=== PATIENT | male | born 1950 | race African-American/Black ===

== ENCOUNTER 2020-07-29 12:04 | Emergency (ER) | payer OTHER ==
[2020-07-29] MEDS ORDERED: LIDOCAINE 1% INJ-PF (10 MG/ML) 30 ML SDV INJ ONE (12:24)
[2020-07-29] MEDS ORDERED: DIPH/PERTUSS(ACELL)/TETANUS VAC/PF 0.5 ML SYR (>=10YO) IM ONE (12:25)
--- NOTE | 2020-07-29 12:30 | ER Document Report ---
HPI - HPI Patient complains to provider of: right finger laceratio Time Seen by Provider: 07/29/20 12:16 Context: 69-year-old male with no previous medical problems presents emergency room with a laceration to his right middle finger. 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 Bleeding is persistent Associated Symptoms: None Exacerbated by: Movement Relieved by: Remaining still Similar symptoms previously: No Recently seen / treated by doctor: No - ROS Systems Reviewed and Negative: Yes All other systems reviewed and negative - NEURO Neurology: DENIES: Weakness - MUSCULOSKELETAL Musculoskeletal: REPORTS: Extremity pain - DERM Skin Color: Erythema Skin Problems: Laceration Past Medical History - General Information source: Patient - Social History Smoking Status: Never Smoker Frequency of alcohol use: Occasional Drug Abuse: None Family History: Reviewed & Not Pertinent - Medical History Medical History: Negative Vertical Provider Document - CONSTITUTIONAL Agree With Documented VS: Yes Exam Limitations: No Limitations General Appearance: Mild Distress - INFECTION CONTROL TRAVEL OUTSIDE OF THE [place] IN LAST 30 DAYS: No - HEENT HEENT: Atraumatic, Normocephalic - NECK Neck: Normal Inspection, Supple - RESPIRATORY Respiratory: Breath Sounds Normal, No Respiratory Distress - CARDIOVASCULAR Cardiovascular: Regular Rate, Regular Rhythm, No Murmur - MUSCULOSKELETAL/EXTREMETIES Musculoskeletal/Extremeties: FROM, Tender - Tenderness on palpation to the mid palmar aspect of the right third digit. Full range of motion. No obvious deformity noted. - NEURO Level of Consciousness: Awake, Alert, Appropriate Motor/Sensory: No Motor Deficit, No Sensory Deficit Notes: Positive left radial pulse. Capillary refill less than 3 seconds. - DERM Integumentary: Warm, Dry, Laceration - 5 cm flap laceration noted to the mid distal palmar aspect of the right third digit. Bleeding is controlled. Course - Re-evaluation Re-evalutation: 07/29/20 12:50 Wound was cleansed and sutured as documented. Counseled on proper wound care. Sutures out 8 days. Antibiotics as prescribed. Tetanus was updated. Patient was given strict return to the emergency room guidelines. Return for any new or worsening symptoms. All questions were answered. Patient verbalized understanding and agrees with plan of care. Procedures - Laceration/Wound Repair Right Finger 3rd digit Time completed: 12:48 Wound length (cm): 5 Wound's Depth, Shape: Superficial, Flap Laceration pre-procedure: Sterile PPE donned, Sterile drapes applied, Shur-Clens applied Anesthetic type: 1% Lidocaine Volume Anesthetic (mLs): 2 Wound explored: Clean, No foreign body removed Irrigated w/ Saline (mLs): 50 Wound Repaired With: Sutures Suture Size/Type: 4:0 Number of Sutures: 7 Layer Closure?: Yes Deep Layer Suture Size/Type: 4:0 Post-procedure wound care: Sterile dressing applied Post-procedure NV exam normal: Yes Complications: No Hands front picture: 1 - 5 cm flap laceration Discharge - Discharge Clinical Impression: Laceration of right middle finger w/o foreign body w/o damage to nail Qualifiers: Encounter type: initial encounter Qualified Code(s): S61.212A - Laceration without foreign body of right middle finger without damage to nail, initial encounter Condition: Stable Disposition: HOME, SELF-CARE Instructions: Hand Laceration ([facility]), Laceration Care ([facility]), Prophylactic Antibiotic ([facility]), Tetanus Immunization Given ([facility]) Additional Instructions: Can remove the dressing in 24 hours. Keep wound clean and dry. Keep covered while at work. Antibiotics as prescribed. Sutures out 8 days. Return to the emergency room for any new or worsening symptoms. Prescriptions: Cephalexin Monohydrate [Keflex 500 mg Capsule] 500 mg PO QID 10 Days #40 capsule Referrals: [facility]AL[facility],NO [Primary Care Provider] - Follow up as needed
[2020-07-29 13:20] VITALS: BP 122/77
== END 2020-07-29 13:21 | disposition home or self-care (01) ==
LOC: ER 12:04
DX: S61.212A Laceration without foreign body of right middle finger without damage to nail, initial encounter (principal); W29.3XXA Contact with powered garden and outdoor hand tools and machinery, initial encounter; Y93.89 Activity, other specified; Z23 Encounter for immunization
CPT/HCPCS: 12032; 99283; 90715; J3490